=== PATIENT | female | born 1990 | race Caucasian/White ===

== ENCOUNTER 2017-06-27 14:00 | Inpatient (IN) | payer BC, OTHER ==
[~2017-06-27] VITALS: Ht 154.9 cm; Wt 47.6 kg
--- NOTE | ~2017-06-27 | EEG ---
[facility] [place] [address] ELECTROENCEPHALOGRAM Name: SARAH VALDOVINOS Room #: 460-P [facility] IN M.R.#: [id number] Admission: 06/27/17 Attend Phys: Gaurav Carroll Discharge: Date of : 89 Report #: [id number] THIS REPORT FOR: //name// CC: Gaurav Salguero NO PCP DATE OF SERVICE: 06/30/2017 This patient is being evaluated for the possibility of seizure. EEG was done by placing the electrode by standard 10-20 system of electrode placement. Both referential and sequential montages were used for recording. Background activity is about 11 Hz and 40 microvolts. The patient became drowsy that is associated with bilateral slowing and vertex sharp waves. Photic stimulation is unremarkable. Throughout the record, no active epileptiform activity was noticed. IMPRESSION: This patient's EEG is within normal limits. In spite of the patient's history, the EEG does not show any clear-cut epileptiform activity. By: [id number] Ethan Clinton MD /nt
--- NOTE | ~2017-06-27 | EKG ---
[address] [place] [address] ELECTROCARDIOGRAM REPORT Name: SARAH VALDOVINOS Room #: 170-7 ADM IN M.R.#: [id number] Admission: 06/27/17 Attend Phys: Gaurav Salguero Discharge: Date of : 89 Report #: [id number] THIS REPORT FOR: //name// [facility] ED Test Date: 2017-06-27 Test Time: 14:23:58 Pat Name: SARAH VALDOVINOS Department: Room: Gender: F Small Engine Technician: BELEN : 1990 Requested By: Jesse David Order Number: [id number] MD: Alirio Leach Measurements Intervals Adrian Rate: 93 P: 43 OK: 128 QRS: 65 QRSD: 88 T: 17 QT: 361 QTc: 449 Interpretive Statements Sinus rhythm Normal tracing No previous ECG available for comparison Electronically Signed On 06-27-2017 15:51:32 CDT by Alirio Leach [email or web address] <ELECTRONICALLY SIGNED> By: Alirio Leach MD, [facility] 06/27/17 1551 1423 1423 Alirio Leach MD, FACC /EPI
--- NOTE | ~2017-06-27 | HC ---
[facility] [place] [address] CONSULTATION Name: SARAH VALDOVINOS Room #: 460-P [facility] IN M.R.#: [id number] Admission: 06/27/17 Attend Phys: Gaurav Salguero Discharge: Date of : 89 Report #: [id number] THIS REPORT FOR: //name// CC: Gaurav Salguero NO PCP DATE OF SERVICE: 06/29/2017 REASON FOR CONSULTATION: Anemia. REQUESTING PHYSICIAN: Dr. Salguero. HISTORY OF PRESENT ILLNESS: The patient is a pleasant 26-year-old woman, [place] descent, adopted from orphanage , no knowledge of family history, who was seen by her remotely operated vehicle in the clinic. She was found to have severe anemia, hemoglobin is 5.2. She was instructed to go to Emergency Room. The patient was given a unit of packed red blood cells, IV iron. Hematology consult is requested. She is evaluated in her bed, mother at bedside. She states that she has been having fatigue last several days. She does not have a history of anemia. She says she eating good diet, eats a variety of foods including red meat. She has always liked ice, but has not been craving ice recently. She does not have a menometrorrhagia. Her periods are quite light, every 4 weeks. Denies melena, hematochezia, denies weight loss. PAST MEDICAL HISTORY: Significant for seizure disorder, learning disabilities. SOCIAL HISTORY: She does not smoke, does not drink alcohol excessively. 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 FAMILY HISTORY: Unknown. REVIEW OF SYSTEMS: CONSTITUTIONAL: Denies weight loss. HEENT: Negative. CARDIOVASCULAR: No chest pain or palpitation. RESPIRATORY: No shortness of breath, cough. GASTROINTESTINAL: No epigastric pain, no nausea, no melena. GENITOURINARY: Negative. NEUROLOGIC: History of seizure disorder. She had a small seizure in the hospital, although she is not on anti-seizure medications. She had seizures as a child, but has not had any seizures lately. SKIN: No rash. MUSCULOSKELETAL: Negative. [facility] [address] [place] [address] CONSULTATION Name: LAKSHMI VALDOVINOSN Room #: 460-P [facility] IN M.R.#: [id number] Admission: 06/27/17 Attend Phys: Gaurav Salguero Discharge: Date of : 89 Report #: [id number] PHYSICAL EXAMINATION: GENERAL: Reveals well-developed, well-nourished delightful young woman, not in acute distress. VITAL SIGNS: Blood pressure 108/66, heart rate is 78, temperature 98.1, respirations 18. HEENT: Does not reveal thrush. HEART: Normal S1, S2. LUNGS: Clear. ABDOMEN: Soft. No organomegaly. LYMPHS: There is no cervical or axillary lymphadenopathy. SKIN: She does not have any rash. MENTAL STATUS: Alert, oriented x 3. LABORATORY DATA: White count 3.7, hemoglobin 5.7, MCV 56.0, platelets 157. Absolute reticulocyte count 0.10. Today, hemoglobin 6.9, hematocrit 23.1. Sodium 139, potassium 3.7, BUN 13, creatinine 0.7. Iron 12, TIBC is 530, iron saturation 2, vitamin B12 of 574, haptoglobin 87. ASSESSMENT AND PLAN: Microcytic hypoproliferative anemia, clinical hematological picture consistent with iron deficiency. Iron studies have been drawn. Ferritin is not drawn, but other iron studies are suggestive of iron deficiency. I agree with IV iron. Reason for iron deficiency is not clear. She does not have heavy periods. Consider iron absorption studies, this is most likely cause of iron deficiency. Plan to order ferritin today. I strongly suggest to continue follow up with Dr. Hartley as an outpatient to complete a workup. If necessary, GI workup can be considered later as an outpatient. I advised to take oral iron every other day, according to new research less frequent oral iron gives better results. Thank you very much for allowing me to participate in care of this patient. By: [id number] Isaura Rojas MD /nt
--- NOTE | ~2017-06-27 | P ---
[facility] [place] [address] PROCEDURE REPORT Name: SARAH VALDOVINOS Room #: 460-P [facility] IN M.R.#: [id number] Admission: 06/27/17 Attend Phys: Gaurav Salguero Discharge: 06/30/17 Date of : 89 Report #: [id number] THIS REPORT FOR: //name// CC: Dr. Odilia Salguero MD NO PCP DATE OF SERVICE: 06/30/2017 PROCEDURE PERFORMED: Upper endoscopy with biopsies. HISTORY OF PRESENT ILLNESS: The patient is a 26-year-old female with a significant history of anemia, presented with generalized fatigue. Admit hemoglobin was 5.1 with an MCV of 56.0. The patient denies any obvious bright red blood per rectum or melena. No abdominal pain, no nausea, vomiting or reflux. She was given 1 unit of packed cells. Hemoglobin is 7.1. Stool studies have been ordered for Hemoccult testing. These are still pending as the patient has not had a bowel movement. No previous history of endoscopy. No family history of colon cancer. Plan is for upper endoscopy. DESCRIPTION OF PROCEDURE: The risks and benefits of the procedure were explained to the patient, those risks including but not limited to bleeding, perforation and the risk of sedation. She understood these risks and gave informed consent. Sedation was given using propofol per anesthesia. Next, using a standard [employer] upper endoscope, the scope was placed in the patient's mouth and advanced under direct vision through the esophagus, stomach and into the second portion of the duodenum. The larynx was normal in appearance. The upper and mid esophagus were normal. In the distal esophagus, there was a grade B erosive esophagitis. No evidence of bleeding. 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 Biopsies were obtained. Overall, the gastric mucosa was normal. The pylorus was normal and patent. The duodenal bulb, first and second portion were all normal. Because of her history of anemia, biopsies were obtained to rule out the possibility of celiac sprue. The scope was then withdrawn and the procedure terminated. The patient tolerated the procedure well. IMPRESSION: 1. Grade B erosive esophagitis. 2. Possible short segment of Rooney's. 3. Otherwise, normal upper endoscopy. RECOMMENDATIONS: 1. Await biopsy results. 2. Recommend daily PPI therapy. 3. Okay with discharge to home today. Would recommend Hemoccult testing stools [address] [address] PROCEDURE REPORT Name: LAKSHMI VALDOVINOSN Room #: 460-P [facility] IN M.R.#: [id number] Admission: 06/27/17 Attend Phys: Gaurav Salguero Discharge: 06/30/17 Date of : 89 Report #: [id number] x 3. If positive, may need to consider colonoscopy and further workup in the near future. In the meantime, would continue to monitor hemoglobin closely. Consider oral iron supplementation. Thank you for allowing me to participate in her care. <ELECTRONICALLY SIGNED> By: Ubaldo Longoria MD 07/02/17 0816 1220 1701 Ubaldo Longoria MD /nt
[2017-06-27 14:35] VITALS: BP 117/68
[2017-06-27 14:45] LABS: WBC 3.7 thou/uL (4.0-11.0)
[2017-06-27 14:47] LABS: HEMATOCRIT 20.2 % (37.0-47.0); MCH 15.7 pg (26.0-34.0); MCHC 28.1 g/dL (28.0-37.0); PLATELET COUNT 146 thou/uL (150-400); RBC 3.61 mil/uL (4.20-5.00); RDW 18.8 % (10.5-14.5)
[2017-06-27 14:50] LABS: HEMOGLOBIN 5.7 gm/dL (12.0-15.0)
[2017-06-27 14:55] LABS: CALCIUM 9.3 mg/dL (8.5-10.1); CREATININE 0.7 mg/dL (0.6-1.0); POTASSIUM 3.7 mmol/L (3.5-5.1)
[2017-06-27 15:01] LABS: ALBUMIN 4.5 g/dL (3.4-5.0); DIRECT BILIRUBIN 0.2 mg/dL (<0.1-0.3); TOTAL BILIRUBIN 0.9 mg/dL (<0.1-1.0); TOTAL PROTEIN 7.6 g/dL (6.4-8.2)
[2017-06-27 15:24] LABS: ABSOLUTE NEUTROPHILS 2.4 thou/uL (1.4-8.2)
[2017-06-27 15:25] LABS: ANISOCYTOSIS 2+; HYPOCHROMASIA 2+; MICROCYTES 1+
[2017-06-27 16:13] LABS: ABSOLUTE RETIC COUNT 0.1089 10^6/uL; OBSERVED RETIC COUNT 2.97 % (0.6-2.6)
[2017-06-27 16:16] LABS: % SATURATION 2 % (20-39); IRON 12 ug/dL (50-170); TIBC 530 ug/dL (250-450)
[2017-06-27 16:42] VITALS: BP 117/68
[2017-06-27 17:30] VITALS: BP 123/72
[2017-06-27 17:37] VITALS: BP 117/68
[2017-06-27 19:54] VITALS: BP 113/56
[2017-06-28] VITALS (7 sets, daily range): BP systolic 104–137; BP diastolic 58–75
[2017-06-28 05:00] LABS: WBC 4.3 thou/uL (4.0-11.0)
[2017-06-28 05:01] LABS: MCH 15.8 pg (26.0-34.0); MCHC 28.3 g/dL (28.0-37.0); RBC 3.23 mil/uL (4.20-5.00); RDW 18.8 % (10.5-14.5)
[2017-06-28 05:04] LABS: HEMATOCRIT 18.1 % (37.0-47.0); HEMOGLOBIN 5.1 gm/dL (12.0-15.0)
[2017-06-28 11:48] LABS: URINE BILIRUBIN NEGATIVE (Negative); URINE BLOOD NEGATIVE (Negative); URINE CLARITY CLEAR; URINE COLOR YELLOW; URINE GLUCOSE-RANDOM* NEGATIVE (Negative); URINE KETONES NEGATIVE (Negative); URINE LEUKOCYTES-REFLEX NEGATIVE (Negative); URINE NITRITE-REFLEX NEGATIVE (Negative); URINE PROTEIN (DIPSTICK) NEGATIVE (Negative); URINE UROBILINOGEN 0.2 E.U./dl (0.2-1.0)
[2017-06-28 17:19] LABS: HEMOGLOBIN 6.9 gm/dL (12.0-15.0)
[2017-06-28 17:21] LABS: HEMATOCRIT 23.1 % (37.0-47.0)
[2017-06-29 07:23] VITALS: BP 108/66
[2017-06-29 15:10] VITALS: BP 106/57
[2017-06-29 20:23] VITALS: BP 110/57
[2017-06-30 05:53] VITALS: BP 114/63
[2017-06-30 06:26] LABS: HEMATOCRIT 24.1 % (37.0-47.0); HEMOGLOBIN 7.1 gm/dL (12.0-15.0); MCH 19.1 pg (26.0-34.0); MCHC 29.6 g/dL (28.0-37.0); RBC 3.74 mil/uL (4.20-5.00); RDW 29.2 % (10.5-14.5); WBC 5.1 thou/uL (4.0-11.0)
[2017-06-30 06:32] LABS: MCV 64.3 fL (80.0-100.0)
[2017-06-30 08:00] VITALS: BP 117/58
[2017-06-30] MEDS ORDERED: NIFEREX TABLET1 EACH PO (09:22)
[2017-06-30 13:08] VITALS: BP 104/53
[2017-06-30 16:00] VITALS: BP 111/56
[2017-06-30] MEDS ORDERED: PROTONIX40 M1 PO (16:10)
[2017-06-30 19:40] VITALS: BP 111/56
== END 2017-06-30 20:37 | disposition home or self-care (01) | DRG 810 ==
LOC: ER 14:00 → 4W 15:49 → EROBS 15:49 → 4W 17:52
PROVIDERS: Emergency Medicine; Hospitalist
PROC: 30233N1 Transfusion of Nonautologous Red Blood Cells into Peripheral Vein, Percutaneous Approach (ICD-10-PCS; principal; 2017-06-28)
PROC: 0DB58ZX Excision of Esophagus, Via Natural or Artificial Opening Endoscopic, Diagnostic (ICD-10-PCS; 2017-06-30)
DX: D61.818 Other pancytopenia (principal); K20.9 Esophagitis, unspecified; G40.909 Epilepsy, unspecified, not intractable, without status epilepticus; D50.9 Iron deficiency anemia, unspecified; F81.9 Developmental disorder of scholastic skills, unspecified
CPT/HCPCS: 10040; 62110; 62900; 70005